=== PATIENT | female | born 1985 | race American Indian/Alaskan Native ===

== ENCOUNTER 2020-06-14 06:17 | Inpatient (IN) | payer OTHER ==
--- NOTE | 2020-06-11 09:59 | Anesthesia Consultation ---
Anesthesia Consult and Med Hx Date of service: 06/14/20 - Airway Anesthetic Teeth Evaluation: Crowns (Braces) ROM Head & Neck: Adequate Mental/Hyoid Distance: Adequate Mallampati Class: Class II Intubation Access Assessment: Good - Pre-Operative Health Status ASA Pre-Surgery Classification: ASA3 Proposed Anesthetic Plan: General - Pulmonary Hx Respiratory Symptoms: No (Normal PFTs) Hx Sleep Apnea: No (Sleep study results pending) - Cardiovascular System Hx Hypertension: Yes (+Cardiac clearance; normal ECHO & ETT) - Central Nervous System Hx Psychiatric Problems: No - Endocrine Hx Non-Insulin Dependent Diabetes: No - Hematic Hx Anemia: Yes Hx Sickle Cell Disease: No - Other Systems Hx Alcohol Use: Yes (Occas) Hx Cancer: No Hx Obesity: Yes - Additional Comments Anesthesia Medical History Comments: +Medical clearance
[2020-06-11 10:15] LABS: Hematocrit 34.2 % (30.3-42.9); Hemoglobin 11.2 gm/dl (10.1-14.3); Mean Corpuscular HGB Conc 33 % (30-34); Mean Corpuscular Volume 83 fl (79-97); Platelet Count 338 K/mm3 (140-440)
[2020-06-11 10:38] LABS: Alanine Aminotransferase 7 units/L (7-56); Albumin 3.7 g/dL (3.9-5); BUN/Creatinine Ratio 16; Blood Urea Nitrogen 13 mg/dL (7-17); Calcium 8.8 mg/dL (8.4-10.2); Hemolysis Index 0
[~2020-06-14 06:17] MED LIST: ACETAMINOPHEN IV 1,000 MG/100 ML BOTTLE IV NR; ENOXAPARIN 40 MG/0.4 ML INJ SUB-Q NR; GABAPENTIN 500 MG/10 ML ORAL LIQD PO NR; MIDAZOLAM 2 MG/2 ML INJ IV NR; SCOPOLAMINE TRANSDERMAL PATCH 72 HR TD SCH; ceFAZolin/Water 2 GM/20 ML 2 GM/20 ML SYRINGE IV NR; metroNIDAZOLE/NS 500 MG/100 ML 500 MG/100 ML BAG IV NR
--- OUTSIDE RECORDS SUMMARY | 2020-06-14 08:52 | External Medical Summary ---
:1985 Author Organization [facility], [facility] Address [address] [place] [address] Care Team Providers Name Role Phone Lorie Sainz Unavailable [phone] PROBLEMS Type Condition ICD9-CM [id number] Onset Condition W/U Status Risk SNOM ED Notes Code Code Dates Status Code Problem Sleep G47.9 Active confirmed 22610990 disorder, unspecified Problem Morbid E66.01 Active confirmed 882475594 (severe) obesity due to excess calories Problem Body mass Z68.41 Active confirmed 025942278 index [BMI]40.0-44. 9, adult Problem Dietary Z71.3 Active confirmed 505496800 counseling and surveillance Problem Essential I10 Active confirmed 54447116 (primary) hypertension Problem Gastro-esopha K21.9 Active confirmed 115594 005 geal reflux disease without esophagitis ALLERGIES No Known Allergies ENCOUNTERS from 1983 to 2020-06-11 Encounter Location Date Provider Diagnosis [facility], Lorie Sainz [address]bi [address] (severe) [address] obesity due to excess of [facility] [place], [place] calorie s E66.01 and [address] Essential (prim michael) hypertension I1 0 IMMUNIZATIONS No Information SOCIAL HISTORY Sex Assigned At : Social History Observation Description Sex Assigned At Unknown REASON FOR REFERRAL from 1985 to 2020-06-11 Diagnosis 1 Gastro-esophageal reflux dis ease without esophagitis (K21.9) Diagnosis 2 Morbid (severe) obesity due to excess calories (E66.01) Diagnosis 3 Essential (primary) hyperten diamond (I10) Diagnosis 4 Sleep disorder, unspecified (G47.9) Diagnosis 5 Dietary counseling and surve illance (Z71.3) Diagnosis 6 Body mass index [BMI]40.0-44 .9, adult (Z68.41) Diagnosis 7 Low back pain (M54.5) Referral Organization [facility] Referring Provider First Name Lorie Referring Provider Last Name Alistair Referring Provider Specialty Surgery Referred Provider [facility], - Referral Priority Routine VITAL SIGNS Height 68 in May, Weight 286.2 lbs May, Temperature 98.2 degrees Fahrenheit May, BMI 43.51 kg/m2 May, Blood pressure systolic 128 mm Hg May, Blood pressure diastolic 76 mm Hg May, MEDICATIONS Medication SIG (Take, Route, Notes Start Date End Date Status Frequency, Duration) Hydrocodone-Acetaminophe 15 ml as needed Orally May, 21 7 Jun, 2020 Active n 7.5-325 MG/15ML every 6 hrs for 7 days Zofran 4 MG 1-2 tablet Orally Q 4-6 May, Active HOURS PRN NAUSEA for 30 day(s) Nexium 40 MG 1 capsule Orally Once a May, Active day for 30 day(s) Losartan Potassium Active PROCEDURES No Information RESULTS No Results REASON FOR VISIT PreOp Sleeve MEDICAL (GENERAL) HISTORY Type Description Date Medical History htn Medical History back pain Surgical History Hospitalization History as above Goals Section No Information Health Concerns No Information MEDICAL EQUIPMENT No Information MENTAL STATUS No Information FUNCTIONAL STATUS No Information ASSESSMENTS Encounter Date Diagnosis Assessment Notes Treatment Notes Treatm ent Clinical Notes May, Morbid (severe) An hour was spent obesity due to with patient excess calories reinforcing diet, (ICD-10 - E66.01) vitamin requirements and lifestyle education, A quiz was administered and reviewed to verify understanding of intended procedure and post operative care. Consent forms were reviewed with patient and signed answering all questions, Pre-operative labs were ordered. May, Essential (primary) pt is cleared for hypertension bariatric surgery (ICD-10 - I10) PLAN OF TREATMENT Medication Medication Name Sig Start Date Stop Date Hydrocodone-Acetaminophen 15 ml as needed Orally every 30 May, 2 021 7 Jun, 2020 7.5-325 MG/15ML 6 hrs for 7 days Nexium 40 MG 1 capsule Orally Once a day May, for 30 day(s) Zofran 4 MG 1-2 tablet Orally Q 4-6 30 Apr, 2021 HOURS PRN NAUSEA for 30 day(s) Treatment Notes Assessment Notes Clinical Notes Morbid (severe) obesity due to An hour was spent with patiestella t excess calories reinforcing diet, vitamin requirements and lifestyle education, A quiz was administered and reviewed to verify understanding of intended procedure and post operative care. Consent forms were reviewed with patient and signed answering all questions, Pre-operative labs were ordered. Essential (primary) hypertension pt is cleared for bariatric surgery Referrals Referral Date Details Next Appt Details for surgery Reason: Provider Name:Lorie Sainz, 2020-06-05 0 07:30:00 AM, [address] [facility], [facility], [place], [place], [address], Insurance Providers Payer Name Payer Payer Insured Patient Coverage Coverage End Address Phone Name Relationship to Start Date Yoan e Insured [facility] [facility] [address] [place] [facility] [place] [phone]
[2020-06-14] MEDS ORDERED: ONDANSETRON 4 MG/2 ML INJ IV PRN ×2 (09:04→12:47)
--- NOTE | 2020-06-14 09:10 | Anesthesia Day of Surgery ---
Anesthesia Day of Surgery - Day of Surgery Patient Examined: Yes Patient H&P Reviewed: Yes Patient is NPO: Yes
[2020-06-14] MEDS ORDERED: GABAPENTIN 500 MG/10 ML ORAL LIQD PO NR (09:26)
[2020-06-14] MEDS: LACTATED RINGERS 1,000 ML IV SCH ×2 (09:45→17:48)
[2020-06-14] MEDS ORDERED: metroNIDAZOLE/NS 500 MG/100 ML 500 MG/100 ML BAG IV NR (10:00)
[2020-06-14] MEDS ORDERED: ACETAMINOPHEN IV 1,000 MG/100 ML BOTTLE IV NR (10:00)
[2020-06-14] MEDS ORDERED: MAGNESIUM SULFATE 2 GM/50 ML BAG IV ONE (10:19)
[2020-06-14] MEDS ORDERED: SUGAMMADEX SODIUM 200 MG/2 ML VIAL IV ONE (10:20)
[2020-06-14] MEDS ORDERED: ROCURONIUM 50 MG/5 ML INJ IV ONE ×2 (10:21→11:28)
[2020-06-14] MEDS ORDERED: LIDOCAINE MPF (2%) 20 MG/1 ML VIAL 5 ML ONE ×6 (10:21→10:22)
[2020-06-14] MEDS ORDERED: KETAMINE/STERILE WATER 50 MG/ML SYRINGE ONE (10:21)
[2020-06-14] MEDS ORDERED: BUPIVACAINE/PF (0.25%) 2.5 MG/ML 30 ML VIAL INFILTRATI ONE (10:23)
[2020-06-14] MEDS ORDERED: LIDOCAINE 1%/EPINEPHRINE 1:100,000 VIAL (20 ML) INFILTRATI ONE (10:23)
[2020-06-14] MEDS ORDERED: SODIUM CHLORIDE P/F VIAL 10 ML 10 ML ONE ×2 (10:24→10:27)
[2020-06-14] MEDS ORDERED: dexAMETHasone 20 MG/5 ML VIAL ONE (11:20)
[2020-06-14] MEDS ORDERED: ONDANSETRON 4 MG/2 ML INJ ONE (11:21)
[2020-06-14] MEDS ORDERED: ENOXAPARIN 40 MG/0.4 ML INJ SUB-Q ONE (12:07)
[2020-06-14] MEDS ORDERED: KETOROLAC 30 MG/1 ML INJ ONE (12:40)
[2020-06-14] MEDS ORDERED: METOCLOPRAMIDE 10 MG/2 ML INJ IV PRN (12:47)
[2020-06-14] MEDS ORDERED: SIMETHICONE 80 MG CHEW TAB PO PRN (12:47)
[2020-06-14] MEDS ORDERED: hydrALAZINE 20 MG/1 ML INJ IV PRN (12:47)
[2020-06-14] MEDS ORDERED: MORPHINE 2 MG/1 ML INJ IV PRN (12:47)
--- NOTE | 2020-06-14 12:53 | Operative Report ---
Operative Report Operative Report: DATE:06/14/2020 Surgeon: Lorie Sainz MD Active Directory Architect surgeon:Vicente Mendoza CSA MD Pre-op Dx: morbid obesity Post-op Dx: morbid obesity Procedure: 1. laparoscopic sleeve gastrectomy, 2. hiatal hernia repair Anesthesia: GETA and TAP block EBL: <10ml Specimen: gastric remnant Complication: none immediate Indication: 35 year old female with a history of morbid obesity . Pt is here for sleeve gastrectomy for weight loss to achieve healthier weight and improve or resolve his co-morbidities. She expressed understanding of the risks and benefits. PROCEDURE IN DETAIL: After consent was reviewed, patient was taken back to the operating room, where patient was placed supine on the bed with both arms out. The patient's legs were doubly strapped to the bed. Patient had a foot board in place. Patient had a body warmer placed by anesthesia. General anesthesia was induced with successful endotracheal intubation. Patient was then prepped and draped in normal sterile surgical fashion. After a time-out was called, I made a stab incision in the left subcostal area and placed a Veress needle through this incision and insufflated the abdomen to 18 mmHg pressure. I then counted down a handsbreadth below the xiphoid process in the midline and slightly left lateral injected local anesthetic and made about 1 cm transverse incision. I then used a 5-mm Optiview trocar to enter into the abdomen. There was no gross injury to any intra-abdominal structures. I then placed a 30-degree scope through this port and inspected the abdomen. I then placed a 8-mm port in the right upper quadrant, and 1 5mm in the epigastric area below the costovertebral angle. I then placed a 15-mm port about a handsbreadth in the right mid abdomen. After which a 5mm port was placed in left upper quadrant port along the anterior axillary line in a similar fashion. A liver retractor was placed to the epigastric port to elevate the left lateral lobe and liver. There was a small hiatal hernia appreciated that was accentuated with right and left crural dissection. Hiatal hernia sac was dissected from the crura until the GE junction was resting about 2cm below the level of the diaphragm without tension. An anterior crura-plasty was preformed a U-stitch using surgidac suture. The anterior gastric fat pad was excised. Starting approximately 6 cm proximal to the pylorus, using a LigaSure device the short gastrics were taken all the way to the left shemar. Once the lateral portion of the stomach was mobile anesthesia passed a 40 Montenegrin bougie along the medial aspect to act as a stent. Using serial firings of endoscopic stapler to gold, followed by 4 blue, the lateral portion of the stomach was transected making sure to did not close to the 2 cm to the incisura. All staple loads were supported with Ethicon buttress strips. The sleeve stomach was seen to be without kink obstruction or twisting. The pressure was decreased to 10 mmHg. The staple line was inspected for approximately 5 minutes. There was no significant bleeding appreciated except for a slight loose at the most distal portion of the staple line. Bleeding was minimal and easily controlled with minimal cautery. Tisseel was then sprayed along the entirety of the staple line. The liver retractor was removed. A TAP block was performed with 60ml of 0.25% marcaine along bilateral mid axillary lines starting from the subcostal region to just below the level of the umbilicus This was after the gastric remnant was grasped and pulled into the 15 mm trocar site. The stomach was extracted via the 15 mm trocar site. After the fascia had to be stretched with a Marianna clamp to easily remove the stomach, the fascia was closed using a bib radha device at the level of the fascia with an 0 PDS. trocars were removed under direct visualization. All skin incisions were closed with 4-0 Monocryl followed by Dermabond. Patient was awoken, extubated, and taken to recovery stable condition. All counts were correct.
[2020-06-14] MEDS ORDERED: ENOXAPARIN 40 MG/0.4 ML INJ SUB-Q NR (13:00)
[2020-06-14] MEDS ORDERED: LACTATED RINGERS 1,000 ML IV SCH (13:00)
[2020-06-14] MEDS: fentaNYL 100 MCG/2 ML INJ IV PRN ×4 (13:01→13:22)
[2020-06-14] MEDS ORDERED: HYDROmorphone 1 MG/1 ML INJ IV PRN (13:16)
[2020-06-14] MEDS: HYDROmorphone 1 MG/1 ML INJ IV PRN ×4 (13:25→14:02)
[2020-06-14] MEDS: KETOROLAC 30 MG/1 ML INJ IV SCH ×2 (13:27→18:44)
[2020-06-14] MEDS: FAMOTIDINE 20 MG/2 ML INJ IV SCH (13:45)
[2020-06-14] MEDS: ACETAMINOPHEN IV 1,000 MG/100 ML BOTTLE IV SCH ×2 (15:16→18:43)
--- NOTE | 2020-06-14 16:13 | Post Anesthesia Evaluation ---
- Post Anesthesia Evaluation Patient Participated: Yes Airway Patent: Yes Stable Respiratory Function: Yes Nausea/Vomiting: No Temp > 96.8F: Yes Pain Manageable: Yes Adequeate Hydration: Yes Anesthesia Complications: No
[2020-06-14] MEDS: ceFAZolin/NS 1 GM/50 ML 1 GM/50 ML BAG IV SCH (17:44)
[2020-06-14] MEDS: metroNIDAZOLE/NS 500 MG/100 ML 500 MG/100 ML BAG IV SCH ×2 (17:45→20:30)
[2020-06-15] MEDS: KETOROLAC 30 MG/1 ML INJ IV SCH ×3 (01:04→13:34)
[2020-06-15] MEDS: ceFAZolin/NS 1 GM/50 ML 1 GM/50 ML BAG IV SCH (01:05)
[2020-06-15] MEDS: ACETAMINOPHEN IV 1,000 MG/100 ML BOTTLE IV SCH ×2 (01:47→07:27)
[2020-06-15] MEDS: metroNIDAZOLE/NS 500 MG/100 ML 500 MG/100 ML BAG IV SCH (04:35)
[2020-06-15 08:44] LABS: Basophils % (Auto) 0.4 % (0.0-1.8); Hematocrit 32.1 % (30.3-42.9); Hemoglobin 10.8 gm/dl (10.1-14.3); Lymphocytes # (Auto) 1.9 K/mm3 (1.2-5.4); Lymphocytes % (Auto) 18.2 % (13.4-35.0); Mean Corpuscular HGB Conc 34 % (30-34); Mean Corpuscular Volume 82 fl (79-97); Monocytes # (Auto) 0.7 K/mm3 (0.0-0.8); Monocytes % (Auto) 6.9 % (0.0-7.3); Platelet Count 340 K/mm3 (140-440); Red Blood Count 3.91 M/mm3 (3.65-5.03)
[2020-06-15 09:02] LABS: Alanine Aminotransferase 12 units/L (7-56); Albumin 3.4 g/dL (3.9-5); BUN/Creatinine Ratio 9; Blood Urea Nitrogen 9 mg/dL (7-17); Calcium 8.7 mg/dL (8.4-10.2); Hemolysis Index 3
[2020-06-15] MEDS ORDERED: LOSARTAN 50 MG TAB PO SCH (10:00)
[2020-06-15] MEDS ORDERED: ENOXAPARIN 40 MG/0.4 ML INJ SUB-Q SCH (10:00)
[2020-06-15] MEDS ORDERED: HYDROcodone/Acetaminophen 7.5-325MG-15ML ORAL LIQD PO PRN (10:00)
[2020-06-15] MEDS: FAMOTIDINE 20 MG/2 ML INJ IV SCH (10:13)
[2020-06-15 13:11] VITALS: BP 137/76
--- NOTE | 2020-06-15 13:22 | Post Anesthesia Evaluation ---
- Post Anesthesia Evaluation Patient Participated: Yes Airway Patent: Yes Stable Respiratory Function: Yes Nausea/Vomiting: No Temp > 96.8F: Yes Pain Manageable: Yes Adequeate Hydration: Yes Anesthesia Complications: No Block Receding Appropriately: Yes Patient on Ventilator: No Other Comments: patient is active, ambulates well
--- NOTE | 2020-06-16 09:41 | Discharge Summary ---
Providers - Providers Date of Admission: 06/14/20 07:57 Date of discharge: 06/15/20 Attending physician: CHANDLER PRAJAPATI MD 06/14/20 12:47 Physical Therapy Evaluation and Treat [CONS] Routine Comment: Reason For Exam: post op bariatric surgery Primary care physician: CONFIGURATION ANALYST Hospitalization Reason for admission: s/p lap gasric sleeve Condition: Good Procedures: laparoscopic gastric sleeve with hiatal hernia repair Hospital course: Pt had an uneventful course after an elective laparoscopic gastric sleeve with hiatal hernia repair for the treatment of morbid obesity. She remained stable, was ambulating and tolerating clear liquids without difficulty at discharge. She showed no gross signs of leak or bleeding at that time. She is to follow up in the office in two weeks for follow up. Disposition: TO HOME OR SELFCARE Final Discharge Diagnosis (Prints w/discharge instructions): morbid obesity Core Measure Documentation - Palliative Care Palliative Care/ Comfort Measures: Not Applicable - Core Measures Any of the following diagnoses?: none Exam - Constitutional Vitals: Temp Pulse Resp BP Pulse Ox 98.5 F 96 H 16 137/76 97 06/15/20 11:54 06/15/20 11:54 06/15/20 11:54 06/15/20 11:54 06/15/20 11:54 General appearance: Present: no acute distress, obese - Respiratory Respiratory effort: normal - Cardiovascular Heart Sounds: Present: S1 & S2 - Extremities Extremities: no ischemia - Abdominal General gastrointestinal: Present: soft, non-tender, other (incisions c/d/i). Absent: distended - Psychiatric Psychiatric: appropriate mood/affect - Neurologic Neurologic: CNII-XII intact Plan Activity: advance as tolerated Diet: clear liquids Wound: open to air, keep clean and dry Follow up with: PRIMARY CAREMD [Primary Care Provider] - 7 Days
== END 2020-06-15 17:50 | disposition home or self-care (01) | DRG 621 ==
LOC: 3A 07:57 → 3B-SURG 13:57
PROVIDERS: ADMIT Surgery; ATTEND Surgery
PROC: 0DB64Z3 Excision of Stomach, Percutaneous Endoscopic Approach, Vertical (ICD-10-PCS; principal; 2020-06-14)
PROC: 0BQT4ZZ Repair Diaphragm, Percutaneous Endoscopic Approach (ICD-10-PCS; 2020-06-14)
DX: E66.01 Morbid (severe) obesity due to excess calories (principal); Z68.41 Body mass index [BMI] 40.0-44.9, adult; Z20.822 Contact with and (suspected) exposure to COVID-19; I10 Essential (primary) hypertension; D64.9 Anemia, unspecified; K44.9 Diaphragmatic hernia without obstruction or gangrene
CPT/HCPCS: 36415; 80053; 84703; 85025; 85027; 88307; G0378; C9250; J0131; J0360; J0690; J1100; J1170; J1650; J1885; J2250; J2270; J2405; J2704; J2765; J3010; J3475; J3490; J7120; U0003